=== PATIENT | female | born 1990 | race African-American/Black ===

== ENCOUNTER 2018-09-13 20:25 | Emergency (ER) | payer MEDICAID ==
[~2018-09-13] VITALS: Ht 167.6 cm; Wt 81.0 kg
[2018-09-14] MEDS ORDERED: KETOROLAC 30MG/ML VIAL IV ONE (00:30)
[2018-09-14] MEDS ORDERED: METHOCARBAMOL 500MG TABLET PO ONE (00:30)
[2018-09-14] MEDS ORDERED: KETOROLAC 30MG/ML VIAL IM ONE (01:30)
[2018-09-14 03:18] VITALS: BP 113/76
== END 2018-09-14 03:18 | disposition home or self-care (01) ==
LOC: ER 20:25
DX: S16.1XXA Strain of muscle, fascia and tendon at neck level, initial encounter (principal); M79.18 Myalgia, other site; V89.2XXA Person injured in unspecified motor-vehicle accident, traffic, initial encounter; Y93.89 Activity, other specified; Y92.89 Other specified places as the place of occurrence of the external cause; Y99.8 Other external cause status
CPT/HCPCS: 72125; 81025; 96372; 99284; J1885; Z7610